=== PATIENT | female | born 1955 | race Two or more races ===

== ENCOUNTER 2018-08-19 16:15 | Emergency (ER) | payer OTHER ==
[~2018-08-19] VITALS: Ht 157.5 cm; Wt 63.5 kg
[2018-08-19 16:17] VITALS: BP 148/58
[2018-08-19] MEDS ORDERED: ATEN25TA PO (16:23)
--- NOTE | 2018-08-19 17:05 | NUR ---
SEEN AND EXAMINED BY HEMALATHA TINAJERO
[2018-08-19] MEDS ORDERED: HYDROCODONE/APAP 5/325MG 1 EACH TABLET ONE ×2 (17:06→17:09)
--- NOTE | 2018-08-19 17:12 | NUR ---
NORCO 5/25MG PO GIVEN VERBAL ORDERED BY HEMALATHA VALENZUELA.
[2018-08-19] MEDS ORDERED: HYDROCODONE/APAP 5/325MG 1 EACH TABLET PO ONE ×2 (17:30)
--- NOTE | 2018-08-19 17:31 | NUR ---
IP LITIGATION PARALEGAL AT BEDSIDE FOR XRAY.
--- NOTE | 2018-08-19 17:40 | NUR ---
PT IS WHEELED TO CT SCAN VIA [facility].
== END 2018-08-19 19:36 | disposition home or self-care (01) ==
LOC: ER 16:18
DX: S13.8XXA Sprain of joints and ligaments of other parts of neck, initial encounter (principal); M25.551 Pain in right hip; I10 Essential (primary) hypertension; Z88.1 Allergy status to other antibiotic agents; V49.49XA Driver injured in collision with other motor vehicles in traffic accident, initial encounter; Y93.89 Activity, other specified; Y92.410 Unspecified street and highway as the place of occurrence of the external cause; Y99.8 Other external cause status
CPT/HCPCS: 71111-TC; 72125-TC; 72131-TC; 73502